=== PATIENT | male | born 1950 | race Caucasian/White ===

== ENCOUNTER → 2017-02-13 | Outpatient (CLI) | payer MEDICARE ==
[~2017-02-13] MED LIST: ALDACTONE 25MG25 MG PO; ALFUZOSIN HYDRO10 MG PO; ALTACE 5MG CAPSU5 MG; ASPIRIN EC81 MG PO; ATENOLOL25 MG PO; CARVEDILOL3.125 MG PO; CELEXA 20MG TAB20 MG PO; CIPRO 500MG TA500 MG PO; DIAZEPAM2 M1 PO; DIGOXIN0.125 MG PO; FLEXERIL10 MG PO; FUROSEMIDE40 MG PO; GABAPENTIN 600600 MG PO; GABAPENTIN300 M1 PO; GABAPENTIN300 MG PO; HYDROCODONE1 TABLET PO; ISOSORBIDE MONO30 MG PO; LEVOTHYROXIN0.025 M1 PO; LIPITOR40 M1 PO; LISINOPRIL 5MG T5 MG PO; METFORMIN ER500 M1 PO; NAPROSYN 500MG500 MG PO; NITROGLYCERIN0.4 M1; OMEPRAZOLE40 MG PO; PLAVIX75 MG PO; TAMSULOSIN HCL0.4 MG PO; VITAMIN B121 TA1 PO; XYZAL5 MG PO
--- NOTE | 2017-02-13 16:24 | RADIOLOGY REPORT PS360 ---
PROCEDURE: 2-D M-mode and color Doppler study INDICATIONS FOR THE TEST: Chest pain COPD Heart Murmur Tobacco Smoking Palpitations Fatigue Syncope Edema HypertensionXDiabetes MellitusX Rheumatic Fever SOB PRIETO Obesity HyperlipidemiaX Family History HD Additional History CM,CAD, CABG PATIENT INFORMATION HEIGHT: 71 WEIGHT:240 GENDER: Male B/P:135/64 2-D/M-MODE INTERPRETATION: 2-D MEASUREMENTS OBSERVED VALUES IN CMS Right Ventricular Dimension (RVDd) 2.6 Interventricular Septum (Thickness)(IVsd) 1.0 Left Ventricular Internal Dimensions(LVIDd) 5.4 Left Ventricular Posterior Wall (Thickness)(LVPWd) .9 Aortic Root 3.2 Aortic Cusp Separation 1.7 Left Atrial Dimensions (LAD) 4.0 2D 1. Technically difficult study, endocardial surfaces are very poorly visualized, a repeat study with Definity contrast is recommended. 2. The left atrium is mildly enlarged, left ventricle is normal size, visually estimated ejection fraction approximately 40%, there appears to be marked hypokinesis involving mid to distal septum anterior and anteroapical wall. A repeat study with Definity contrast is recommended. 3. The right atrium and right ventricle are normal size and contractility. 4. The aortic valve is minimally thickened and fibrosed. 5. The mitral and tricuspid valve leaflets are minimally thickened. 6. The pulmonic valve is poorly visualized. 7. No significant pericardial effusion noted DOPPLER INTERROGATION: Doppler interrogation of the aortic, mitral and tricuspid valvular presence of mild mitral and tricuspid regurgitation, tricuspid regurgitant jet velocity insufficient for calculation of the right ventricular systolic pressure, Doppler evidence of impaired LV relaxation seen, there is no tissue Doppler performed. CONCLUSION: 1. Technically difficult study because of the patient's factor and poor acoustic windows, endocardial surfaces are poorly visualized, a repeat study with Definity contrast is recommended. 2. Mildly enlarged left atrium, normal left ventricular size, visually estimated ejection fraction approximately 40%, with multiple segmental wall motion abnormality described above, a repeat study with Definity contrast is recommended. 3. Mild mitral and tricuspid regurgitation, Doppler evidence of impaired LV relaxation seen. 4. No significant pericardial effusion noted.
== END ==
LOC: RT 09:28
DX: I25.10 Atherosclerotic heart disease of native coronary artery without angina pectoris (principal); I42.8 Other cardiomyopathies

== ENCOUNTER → 2017-03-06 | Outpatient (CLI) | payer MEDICARE ==
--- NOTE | 2017-03-06 10:32 | RADIOLOGY REPORT PS360 ---
KNEE-4 OR 5 VIEWS-RT HISTORY: Right knee pain YANELIS KNEE PAIN ORDERING PHYSICIAN: ANGELICA PRO MD PATIENT AGE: 66 years COMPARISON: None FINDINGS: Weightbearing views are performed. No fracture or dislocation. No lytic or blastic change. There is prominent enthesophyte at both superior and inferior patella. There is minimal osteoarthritic change of the medial compartment and patellofemoral joint. IMPRESSION: 1. No acute finding. 2. Minimal osteoarthritic change
--- NOTE | 2017-03-06 10:34 | RADIOLOGY REPORT PS360 ---
KNEE-4 OR 5 VIEWS-LT HISTORY: YANELIS KNEE PAIN ORDERING PHYSICIAN: ANGELICA PRO MD PATIENT AGE: 66 years COMPARISON: None FINDINGS: Weightbearing views are performed. Minimal osteoarthritic changes are present at the medial compartment and patellofemoral joint. No fracture or dislocation. Enthesophytes are present at the superior and inferior aspect of the patella. Surgical clips are present medially. IMPRESSION: 1. No acute finding 2. Minimal osteoarthritic change
== END ==
LOC: RAD 09:08
DX: M25.561 Pain in right knee (principal); M25.562 Pain in left knee